=== PATIENT | male | born 1975 | race Caucasian/White ===

== ENCOUNTER 2020-08-10 11:44 | Emergency (ER) | payer OTHER ==
[~2020-08-10] VITALS: Wt 87.1 kg
[~2020-08-10 11:44] MED LIST: BACTRIM DS 8001 TA1 PO; IBU800 M1 PO; KEFLEX500 M1 PO; MOTRIN800 MG PO; NORCO 5-325 TA1 EACH PO; PENICILLIN VK500 MG PO; VICODIN 500 MG-1 TAB PO; VOLTAREN50 M1 PO
[2020-08-10 12:13] LABS: BASO # 0.1 10*3/uL (0.0-0.1); BASO % 0.9 % (0.0-1.0); EOS # 0.1 10*3/uL (0.0-0.4); EOS % 1.4 % (1.0-4.0); HEMATOCRIT 41.4 % (42.0-52.0); LYMPH # 2.6 10*3/uL (1.3-4.4); LYMPH % 30.5 % (27.0-41.0); MEAN CELL VOLUME 86.6 fl (80.0-94.0); MEAN CORPUSCULAR HGB 29.7 pg (27.0-31.0); MEAN CORPUSCULAR HGB CONC 34.3 g/dl (33.0-37.0); MONO # 0.7 10*3/uL (0.1-1.0); PLATELET COUNT AUTOMATED 315 10*3/uL (130-400); RED BLOOD COUNT 4.78 10*6/uL (4.50-5.90); RED CELL DISTRI WIDTH 12.7 % (0-14.5); WHITE BLOOD COUNT 8.5 10*3/uL (4.8-10.8)
[2020-08-10 12:30] LABS: ALBUMIN 3.5 gm/dl (3.1-4.5); ALKALINE PHOSPHATASE 89 U/L (45-117); BUN 13 mg/dl (7-24); CHLORIDE 107 mmol/L (98-107); CREATININE 0.81 mg/dL (0.70-1.30); SGOT/AST 14 IU/L (3-35); SGPT/ALT 27 U/L (12-78); SODIUM 140 mmol/L (136-145); TOTAL PROTEIN 7.3 gm/dL (6.4-8.2)
[2020-08-10] MEDS ORDERED: POLYSPORIN OINT15 GM T (12:59)
[2020-08-10] MEDS ORDERED: TYLENOL325 M1 PO (12:59)
[2020-08-10] MEDS ORDERED: NAPROXEN250 MG PO (12:59)
[2020-08-10] MEDS ORDERED: CEPHALEXIN500 M1 PO (12:59)
== END 2020-08-10 13:13 | disposition home or self-care (01) ==
LOC: ED 11:44
PROVIDERS: Emergency Medicine
DX: L60.0 Ingrowing nail (principal); L03.032 Cellulitis of left toe